=== PATIENT | male | born 1965 | race Two or more races ===

== ENCOUNTER 2019-01-19 09:55 | Emergency (ER) | payer SELFPAY ==
[~2019-01-19] VITALS: Ht 172.7 cm; Wt 85.0 kg
[2019-01-19 10:03] VITALS: BP 116/84
== END 2019-01-19 10:36 | disposition left against medical advice (07) ==
LOC: ER 09:55
DX: Z53.21 Procedure and treatment not carried out due to patient leaving prior to being seen by health care provider (principal)

== ENCOUNTER 2019-06-03 18:31 | Emergency (ER) | payer SELFPAY ==
[~2019-06-03] VITALS: Ht 170.2 cm; Wt 75.0 kg
[2019-06-03 18:33] VITALS: BP 134/86
== END 2019-06-03 20:32 | disposition home or self-care (01) ==
LOC: ER 18:31
DX: R21 Rash and other nonspecific skin eruption (principal)
CPT/HCPCS: 99283

== ENCOUNTER 2019-07-01 17:59 | Emergency (ER) | payer MEDICAID ==
[~2019-07-01] VITALS: Ht 167.6 cm; Wt 79.0 kg
[2019-07-01 19:01] VITALS: BP 140/88
== END 2019-07-01 20:06 | disposition home or self-care (01) ==
LOC: ER 18:08
DX: R21 Rash and other nonspecific skin eruption (principal); S00.412A Abrasion of left ear, initial encounter; X58.XXXA Exposure to other specified factors, initial encounter; Y93.89 Activity, other specified; Y92.89 Other specified places as the place of occurrence of the external cause
CPT/HCPCS: 99282

== ENCOUNTER 2019-08-24 20:15 | Emergency (ER) | payer MEDICAID ==
[~2019-08-24] VITALS: Ht 167.6 cm; Wt 80.5 kg
[2019-08-24 23:03] VITALS: BP 143/88
== END 2019-08-24 23:07 | disposition home or self-care (01) ==
LOC: ER 20:15
DX: M54.42 Lumbago with sciatica, left side (principal); L03.211 Cellulitis of face
CPT/HCPCS: 99283

== ENCOUNTER 2019-09-15 16:22 | Emergency (ER) | payer MEDICAID ==
[~2019-09-15] VITALS: Ht 167.6 cm; Wt 82.0 kg
[2019-09-15 16:47] VITALS: BP 137/87
== END 2019-09-15 20:47 | disposition left against medical advice (07) ==
LOC: ER 16:22
DX: S00.86XA Insect bite (nonvenomous) of other part of head, initial encounter (principal); Z53.21 Procedure and treatment not carried out due to patient leaving prior to being seen by health care provider; W57.XXXA Bitten or stung by nonvenomous insect and other nonvenomous arthropods, initial encounter; Y93.89 Activity, other specified; Y92.89 Other specified places as the place of occurrence of the external cause; Y99.8 Other external cause status

== ENCOUNTER 2019-09-16 08:05 | Emergency (ER) | payer MEDICAID, OTHER ==
[~2019-09-16] VITALS: Ht 167.6 cm; Wt 79.0 kg
[2019-09-16 08:15] VITALS: BP 121/78
== END 2019-09-16 10:56 | disposition home or self-care (01) ==
LOC: ER 08:05
DX: R21 Rash and other nonspecific skin eruption (principal); L53.8 Other specified erythematous conditions; Z98.890 Other specified postprocedural states
CPT/HCPCS: 99282

== ENCOUNTER 2020-04-22 02:12 | Emergency (ER) | payer MEDICAID ==
[~2020-04-22] VITALS: Ht 167.6 cm; Wt 78.0 kg
[2020-04-22 02:20] VITALS: BP 167/91
== END 2020-04-22 03:04 | disposition home or self-care (01) ==
LOC: ER 02:12
DX: L03.211 Cellulitis of face (principal); B86 Scabies
CPT/HCPCS: 99283

== ENCOUNTER 2020-08-19 11:29 | Emergency (ER) | payer MEDICAID ==
[~2020-08-19] VITALS: Ht 167.6 cm; Wt 77.0 kg
[2020-08-19 11:33] VITALS: BP 156/84
[2020-08-19] MEDS ORDERED: DIPHENHYDRAMINE 25MG CAPSULE PO ONE (11:45)
== END 2020-08-19 12:21 | disposition home or self-care (01) ==
LOC: ER 11:29
DX: B86 Scabies (principal); Z98.890 Other specified postprocedural states
CPT/HCPCS: 99282; Q0163

== ENCOUNTER 2020-09-20 12:08 | Emergency (ER) | payer MEDICAID ==
[~2020-09-20] VITALS: Ht 167.6 cm; Wt 73.0 kg
[2020-09-20] MEDS ORDERED: DIPHENHYDRAMINE 25MG CAPSULE PO ONE (12:45)
[2020-09-20 13:11] VITALS: BP 149/90
== END 2020-09-20 13:12 | disposition home or self-care (01) ==
LOC: ER 12:12
DX: L20.9 Atopic dermatitis, unspecified (principal); Z98.890 Other specified postprocedural states
CPT/HCPCS: 99282; Q0163

== ENCOUNTER 2021-01-16 16:24 | Emergency (ER) | payer MEDICAID ==
[~2021-01-16] VITALS: Ht 167.6 cm; Wt 73.0 kg
[2021-01-16 16:32] VITALS: BP 150/86
[2021-01-16] MEDS ORDERED: BO1 TP (17:56)
== END 2021-01-16 18:07 | disposition home or self-care (01) ==
LOC: ER 16:24
DX: L20.89 Other atopic dermatitis (principal); R03.0 Elevated blood-pressure reading, without diagnosis of hypertension
CPT/HCPCS: 99282

== ENCOUNTER 2021-02-07 11:41 | Emergency (ER) | payer BC, MEDICAID ==
[~2021-02-07] VITALS: Ht 167.6 cm; Wt 73.0 kg
[~2021-02-07 11:41] MED LIST: BO1 TP
[2021-02-07 11:42] VITALS: BP 154/88
[2021-02-07] MEDS ORDERED: P50 MT (11:56)
[2021-02-07] MEDS ORDERED: PREDNISONE 20MG TABLET PO ONE (12:00)
== END 2021-02-07 12:25 | disposition home or self-care (01) ==
LOC: ER 11:41
DX: R21 Rash and other nonspecific skin eruption (principal); Z98.890 Other specified postprocedural states
CPT/HCPCS: 99283; J7512

== ENCOUNTER 2024-05-29 21:08 | Emergency (ER) | payer MEDICARE, MEDICAID ==
[~2024-05-29] VITALS: Ht 170.2 cm; Wt 78.0 kg
[~2024-05-29 21:08] MED LIST changes: +HYDR-4001 MT; +P50 MT
[2024-05-29 21:22] VITALS: BP 142/79; PULSE 90; RESP 18; TEMP 98.3; O2SAT 96; O2SAT 99
== END 2024-05-30 03:30 | disposition left against medical advice (07) ==
LOC: ER 21:08
DX: T63.001A Toxic effect of unspecified snake venom, accidental (unintentional), initial encounter (principal); Z48.00 Encounter for change or removal of nonsurgical wound dressing; Y92.9 Unspecified place or not applicable
CPT/HCPCS: 99281